=== PATIENT | male | born 1980 | race Caucasian/White ===

== ENCOUNTER 2018-03-05 01:36 | Emergency (ER) | payer OTHER ==
[2018-03-05] MEDS ORDERED: FENTANYL CITR 100 MCG/2 ML ONE (01:55)
[2018-03-05] MEDS ORDERED: ONDANSETRON 4 MG/2 ML VIAL ONE (01:55)
[2018-03-05] MEDS ORDERED: ASPIRIN 81 MG CHEWABLE TABLET ONE (01:58)
[2018-03-05 02:05] LABS: Absolute Lymphocytes (CBC) 6.3 K/uL (0.7-4.9); Absolute Monocytes 0.9 K/uL (0.1-1.3); Absolute Neutrophil 7.9 K/uL (1.8-8.0); Basophils % 0.8 % (0-1.3); Lymphocytes % 41.1 % (15.3-44.8); MPV 6.9 fL (7.6-11.3); Monocytes % 5.8 % (3.3-12.3); RBC Red Blood Cell Count 5.28 M/uL (4.33-5.43)
[2018-03-05] MEDS ORDERED: DIAZEPAM 10 MG/2 ML INJ SYRINGE ONE (02:06)
[2018-03-05] MEDS ORDERED: DIPHENHYDRAMINE 50 MG/ML VIAL ONE (02:14)
[2018-03-05] MEDS ORDERED: IPRATROPIUM BROM 0.5MG/2.5ML ONE (02:14)
[2018-03-05] MEDS ORDERED: METHYLPREDNISOLONE 125 MG INJ ONE (02:14)
[2018-03-05] MEDS ORDERED: ALBUTEROL 2.5 MG/3 ML NEB SOL ONE (02:14)
[2018-03-05] MEDS ORDERED: EPINEPHRINE/PF 1 MG/ML AMP ONE (02:15)
[2018-03-05 02:23] LABS: ALT/SGPT 25 U/L (12-78); AST/SGOT 20 U/L (15-37); Albumin 3.9 g/dL (3.4-5.0); Alkaline Phosphatase 70 U/L (45-117); BUN Blood Urea Nitrogen 13 mg/dL (7-18); Bicarbonate 21 mmol/L (21-32); Bilirubin Direct < 0.1 mg/dL (0-0.2); Bilirubin Total 0.2 mg/dL (0.2-1.0); Glucose Level 82 mg/dL (74-106); Magnesium 2.3 mg/dL (1.8-2.4); Potassium 3.2 mmol/L (3.5-5.1); Protein, Total 7.7 g/dL (6.4-8.2); Sodium Level 145 mmol/L (136-145); Troponin (Emerg Dept Use Only) < 0.02 ng/mL (0.0-0.045)
[2018-03-05 02:30] LABS: NT PRO-BNP < 5 pg/mL (<125)
[2018-03-05] MEDS ORDERED: HYDROMORPHONE HCL 1 MG/ML INJ ONE ×2 (02:33→03:17)
[2018-03-05] MEDS ORDERED: NA CHLORIDE 0.9% 1,000 ML ONE (02:38)
[2018-03-05 02:53] LABS: Arterial Blood Carboxyhemoglob 3.6 % (0-1.5); Blood Gas Oxyhemoglobin 94.5 % (94-97); Blood O2 Saturation 98.6 % (92-98.5)
[2018-03-05 03:23] LABS: Barbiturates NEGATIVE (NEGATIVE); Benzodiazepines NEGATIVE (NEGATIVE); Cocaine NEGATIVE (NEGATIVE); METHAMPHETAM NEGATIVE (NEGATIVE); Methadone NEGATIVE (NEGATIVE); Opiates NEGATIVE (NEGATIVE); Phencyclidine NEGATIVE (NEGATIVE); THC Cannibis NEGATIVE (NEGATIVE)
[2018-03-05 03:25] LABS: Urine Blood NEGATIVE (NEG); Urine Glucose NEGATIVE (NEG); Urine Protein NEGATIVE (NEG); Urine Specific Gravity 1.005 (1.005-1.030); Urine pH 5.5 (5.0-7.0)
[2018-03-05] MEDS ORDERED: HYDROCODONE/APAP 10/325 TAB ONE (04:36)
--- NOTE | 2018-03-05 06:01 | ER ---
Nurse's Notes [facility] Emergency Department Name: Westley Wyatt Jr Age: 37 yrs Sex: Male : 1980 Arrival Date: 03/05/2018 Time: 01:39 Bed 4 Private MD: Diagnosis: Cervical disc disorder with myelopathy Presentation: 03/05 01:51 Presenting complaint: Patient states: he is having severe chest pain since yesterday bb pain is intermittent but worsened today also has left arm numbness. Transition of care: patient was not received from another setting of care. Onset of symptoms was March 04, 2018. Risk Assessment: Do you want to hurt yourself or someone else? Patient reports no desire to harm self or others. Initial Sepsis Screen: Does the patient meet any 2 criteria? No. Patient's initial sepsis screen is negative. Does the patient have a suspected source of infection? No. Patient's initial sepsis screen is negative. Care prior to arrival: None. 01:51 Method Of Arrival: Ambulatory bb 01:51 Acuity: ROBERT 2 bb Historical: - Allergies: 01:53 Demerol; bb - Home Meds: 01:53 Unable to obtain [Active]; bb - PMHx: 03:34 Unable to obtain; ak1 - PSHx: 01:53 Cholecystectomy; Appendectomy; Bowel resection; bb - Immunization history:: Adult Immunizations unknown. - Social history:: Smoking status: Patient uses tobacco products, denies chronic smoking, but will smoke occasionally. - Ebola Screening: : No symptoms or risks identified at this time. Screenin:39 Abuse screen: Denies threats or abuse. Nutritional screening: No deficits noted. jb4 Tuberculosis screening: No symptoms or risk factors identified. Fall Risk IV access (20 points). Gait- Impaired (20 pts.). Total Padron Fall Scale indicates Low Risk Score (25-44 pts). Fall prevention measures have been instituted. Side Rails Up X 2 Placed close to Nursing Station Frequent Obs/Assesments occuring Family Present and informed to notify staff if they need to leave bedside As available Patient and Family Educated on Fall Prevention Program and strategies. Assessment: 01:39 General: Appears distressed, Behavior is cooperative, anxious, Pt presented to the ER jb4 with chest pain and a rash extended from the scalp mid way down the chest. Provider notified of pt being in distress and is at the bedside.. Pain: Complains of pain in chest Pain radiates to left arm Pain currently is 10 out of 10 on a pain scale. Quality of pain is described as Pain began 1 day ago. Is intermittent. Neuro: Level of Consciousness is awake, alert, obeys commands, Oriented to person, place, time, situation. Cardiovascular: Heart tones S1 S2 present Patient's skin is warm and dry. Rhythm is sinus tachycardia Chest pain is described as "worst pain of my life", quality is clutching, sharp, stabbing, radiates to left arm(s) began 30 minutes prior to arrival episodes are continuous. Respiratory: Reports labored breathing Airway is patent Respiratory effort is even, labored, Respiratory pattern is symmetrical, hyperventilation Breath sounds are clear bilaterally. GI: Reports lower abdominal pain. : No signs and/or symptoms were reported regarding the genitourinary system. EENT: No signs and/or symptoms were reported regarding the EENT system. 01:39 Derm: Skin is intact, Skin is pink, warm \\T\\ dry. Cyanosis noted to alfie fingers and jb4 hands. Musculoskeletal: PT reports numbness and tingling in the left arm, difficulty moving the left arm and both legs. 01:45 Reassessment: Pt went unresponsive, woken with sternal rubs. Is hyperventilating and jb4 clutching his chest repeating "It hurts it hurts, please make it stop." Physician is at the bedside. See [facility] for orders. 01:47 Reassessment: Pt went unresponsive a second time, woken with sternal rubs. Pt is still jb4 anxious, has requested his girlfriend be allowed in the room for comfort. Girlfriend is now at the bedside. 01:50 Reassessment: Pt went unresponsive two more time before being moved to a trauma room, jb4 and one time in transit. Pt was woken up with sternal rubs each time. Requested girl friend stay at the bedside for comfort. Is still very anxious and hyperventilating. see [facility] for further orders. 02:56 Reassessment: pt talking and wanting to us the urinal, pt went unresponsive. pt ak1 breathing, eyes open, pt not alert. pt had "several episodes" similar while under care of previous nurse. General:. 03:34 Reassessment: pt tolerated CT well. pt able to move all extremities. pt unable to "feel ak1 sensation " in left upper extremity and left leg. pt with weaker patient care provider to left hand. pt c/o increased pain to his left chest when lift and moving left arm. 04:32 Reassessment: pt tolerated head and c-spine CT well. pt c/o increased chest pain 8/[address] pt continues to c/o "needle" sensation up and down his left arm and left leg. 05:26 Reassessment: Patient appears in no apparent distress at this time. Patient and/or ak1 family updated on plan of care and expected duration. Pain level reassessed. Patient is alert, oriented x 3, equal unlabored respirations, skin warm/dry/pink. pain to left chest has decreased Patient states symptoms have not improved. 06:08 Reassessment: Patient appears in no apparent distress at this time. pt requesting to go ak1 home. Patient states feeling better. Patient states symptoms have improved. Vital Signs: 01:53 BP 155 / 88; Pulse 123; Resp 20 S; Temp 98(O); Pulse Ox 94% on R/A; Weight 90.72 kg bb (R); Height 5 ft. 7 in. (170.18 cm) (R); Pain 10/10; 04:10 BP 129 / 86; Pulse 112; Resp 17; Pulse Ox 98% ; ar5 04:37 BP 117 / 80; Pulse 110; Resp 21; Pulse Ox 98% on R/A; ak1 05:27 BP 122 / 80; Pulse 104; Resp 18; Temp 98.2; Pulse Ox 98% on R/A; ak1 06:07 BP 122 / 75; Pulse 101; Resp 21; Temp 98.3; Pulse Ox 99% on 2 lpm NC; Pain 3/10; ak1 01:53 Body Mass Index 31.32 (90.72 kg, 170.18 cm) bb ED Course: 01:39 Patient arrived in ED. bb 01:39 Patient maintains SpO2 saturation greater than 95% on room air. jb4 01:39 Patient has correct armband on for positive identification. Placed in gown. Bed in low jb4 position. Call light in reach. Side rails up X2. phototypesetting equipment monitor on. Pulse ox on. NIBP on. 01:45 [facility] jr[facility] 01:45 Iban Will MD is Attending Physician. jr8 01:45 Inserted saline lock: 18 gauge in right antecubital area, using aseptic technique. tl2 Blood collected. 01:49 X-ray completed. Portable x-ray completed in exam room. Patient tolerated procedure kw well. 01:50 XRAY Chest (1 view) In Process Unspecified. EDMS 01:52 Triage completed. bb 01:53 Arm band placed on Patient placed in an exam room, on a stretcher, on secured entrance monitor, bb on pulse oximetry. EKG completed in triage. Results shown to MD. 02:26 Inserted saline lock: 20 gauge in left antecubital area, using aseptic technique. bb 02:31 Leoncio Lei, ANTHONY is Primary Nurse. jb4 03:27 CT Aorta for Dissection In Process Unspecified. EDMS 04:27 CT Head C Spine In Process Unspecified. EDMS 04:27 CT completed. Patient tolerated procedure well. Patient moved back from CT. kw1 05:27 No provider procedures requiring assistance completed. ak1 06:00 Tyshawn Crabtree MD is Referral Physician. gs 06:18 IV discontinued, intact, bleeding controlled, No redness/swelling at site. Pressure ak1 dressing applied. Administered Medications: 01:45 Drug: fentaNYL (PF) 50 mcg Route: IVP; Site: right antecubital; jb4 02:30 Follow up: Response: No adverse reaction; Pain is decreased jb4 01:45 Drug: Zofran 4 mg Route: IVP; Site: right antecubital; jb4 02:30 Follow up: Response: No adverse reaction; Nausea is decreased jb4 01:50 Drug: Aspirin Chewable Tablet 324 mg Route: PO; jb4 02:30 Follow up: Response: No adverse reaction jb4 01:55 Drug: Valium 5 mg Route: IVP; Site: right antecubital; jb4 02:30 Follow up: Response: No adverse reaction; Pain is decreased jb4 02:00 Drug: Benadryl 50 mg Route: IVP; Site: right antecubital; jb4 04:38 Follow up: Response: No adverse reaction; Marked relief of symptoms jb4 02:00 Drug: SOLU-Medrol 125 mg Route: IVP; Site: right antecubital; jb4 04:38 Follow up: Response: No adverse reaction; Marked relief of symptoms jb4 02:12 Drug: Albuterol - atroVENT (3:1) (2.5 mg - 0.5 mg) 3 ml Route: Nebulizer; jb4 04:37 Follow up: Response: No adverse reaction ak1 02:16 Drug: fentaNYL (PF) 50 mcg Route: IVP; Site: right antecubital; jb4 02:30 Follow up: Response: No adverse reaction; Pain is decreased jb4 02:20 Drug: Valium 5 mg Route: IVP; Site: right antecubital; jb4 02:30 Follow up: Response: No adverse reaction; Pain is decreased jb4 02:26 Drug: Dilaudid 1 mg Route: IVP; Site: left antecubital; bb 02:30 Follow up: Response: No adverse reaction; Pain is decreased jb4 02:29 Drug: NS 0.9% 1000 ml Route: IV; Rate: 1 bolus; Site: right antecubital; jb4 04:37 Follow up: IV Status: Completed infusion; IV Intake: 1000ml ak1 03:32 Drug: Dilaudid 1 mg Route: IVP; Site: left antecubital; ak1 04:37 Follow up: Response: No adverse reaction; Pain is unchanged, physician notified ak1 04:20 Drug: [place] 10 mg-325 mg 1 tabs Route: PO; jb4 06:08 Follow up: Response: Pain is decreased ak1 Intake: 04:37 IV: 1000ml; Total: 1000ml. ak1 Outcome: 06:00 Discharge ordered by 06:08 Discharged to home ambulatory, with family. ak1 06:08 Condition: improved 06:08 Discharge instructions given to patient, family, Instructed on discharge instructions, follow up and referral plans. Demonstrated understanding of instructions, follow-up care. 06:18 Instructed on no drinking with medication, no driving heavy equipment, medication ak1 usage, Prescriptions given X 2. 06:20 Patient left the ED. ak1 Signatures: Dispatcher [employer] EDMS Farzaneh Feliciano RN RN Sommer Santos Josh, PA PA jr8 Krenek, Amber, RN RN ak1 Alyssa Lloyd RN RN tl2 Leoncio Lei RN RN jb4 Iban Will MD MD gs Wilhelm, Kimberly kw1 Sofya Giles ar5 Corrections: (The following items were deleted from the chart) 02:07 01:51 Acuity: ROBERT 3 bb bb 03:10 01:39 General: Appears distressed, Behavior is cooperative, anxious, Pt presented to 4 the ER with chest pain and a rash extended from the scalp mid way down the chest.. 4 04:32 01:39 Derm: Skin is intact, Skin is pink, warm \\T\\ dry. Cyanosis noted to alfie fingers. 4jb4 04:32 03:34 Reassessment: pt tolerated CT well. pt able to move all extremities. pt unable to ak1 "feel sensation " in left upper extremity and left leg. ak1
--- NOTE | 2018-03-05 06:01 | EDPHYS ---
Physician Documentation [facility] Name: Westley Wyatt Jr Age: 37 yrs Sex: Male : 1980 Arrival Date: 03/05/2018 Time: 01:39 Bed 4 Private MD: ED Physician Iban Will HPI: 03/05 02:43 This 37 yrs old Male presents to ER via Ambulatory with complaints of Chest jr8 Pain. 02:43 The patient or guardian reports chest pain that is located primarily in the anterior jr8 chest wall, left. The pain does not radiate. Associated signs and symptoms: Pertinent positives: shortness of breath. The chest pain is described as squeezing, stabbing. Duration: The patient or guardian reports multiple episodes, that are intermittent, that wax and wane. Modifying factors: The symptoms are alleviated by nothing. the symptoms are aggravated by nothing. Severity of pain: At its worst the pain was severe in the emergency department the pain is unchanged. The patient has not experienced similar symptoms in the past. The patient has not recently seen a physician. Patient stated that he had a bout of chest pain last night. Had gone away and had been fine today until tonight. Stated that he started to have the pain again. Girlfriend stated that she noticed red splotching rash to chest and left shoulder that now has spread. Patient denies itching, tongue swelling, or difficulty swallowing. Patient smells of ETOH. Stated that he has alcohol earlier this evening. Denies drug use. Denies ever having this before. Patient in moderate distress upon arrival . Historical: - Allergies: 01:53 Demerol; bb - Home Meds: 01:53 Unable to obtain [Active]; bb - PMHx: 03:34 Unable to obtain; ak1 - PSHx: 01:53 Cholecystectomy; Appendectomy; Bowel resection; bb - Immunization history:: Adult Immunizations unknown. - Social history:: Smoking status: Patient uses tobacco products, denies chronic smoking, but will smoke occasionally. - Ebola Screening: : No symptoms or risks identified at this time. ROS: 02:43 Eyes: Negative for injury, pain, redness, and discharge, ENT: Negative for injury, jr8 pain, and discharge, Neck: Negative for injury, pain, and swelling, Abdomen/GI: Negative for abdominal pain, nausea, vomiting, diarrhea, and constipation, Back: Negative for injury and pain, MS/Extremity: Negative for injury and deformity, Neuro: Negative for headache, weakness, numbness, tingling, and seizure. 02:43 Cardiovascular: Positive for chest pain, Negative for edema, orthopnea, palpitations, paroxysmal nocturnal dyspnea. 02:43 Respiratory: Positive for shortness of breath, Negative for cough, dyspnea on exertion, sputum production, wheezing. 02:43 Skin: Positive for rash, of the chest. Exam: 02:43 Head/Face: Normocephalic, atraumatic. Eyes: Pupils equal round and reactive to light, jr8 extra-ocular motions intact. Lids and lashes normal. Conjunctiva and sclera are non-icteric and not injected. Cornea within normal limits. Periorbital areas with no swelling, redness, or edema. ENT: Nares patent. No nasal discharge, no septal abnormalities noted. Tympanic membranes are normal and external auditory canals are clear. Oropharynx with no redness, swelling, or masses, exudates, or evidence of obstruction, uvula midline. Mucous membranes moist. Neck: Trachea midline, no thyromegaly or masses palpated, and no cervical lymphadenopathy. Supple, full range of motion without nuchal rigidity, or vertebral point tenderness. No Meningismus. Chest/axilla: Normal chest wall appearance and motion. Nontender with no deformity. No lesions are appreciated. Cardiovascular: Sinus Tachycardia with a normal S1 and S2. No gallops, murmurs, or rubs. Normal PMI, no JVD. No pulse deficits. Abdomen/GI: Soft, non-tender, with normal bowel sounds. No distension or tympany. No guarding or rebound. No evidence of tenderness throughout. Back: No spinal tenderness. No costovertebral tenderness. Full range of motion. MS/ Extremity: Pulses equal, no cyanosis. Neurovascular intact. Full, normal range of motion. Neuro: Awake and alert, GCS 15, oriented to person, place, time, and situation. Cranial nerves II-XII grossly intact. Motor strength 5/5 in all extremities. Sensory grossly intact. Cerebellar exam normal. Normal gait. 02:43 Constitutional: The patient appears alert, awake, in obvious distress, moderately distressed, in obvious pain, smells of alcohol, ETOH. 02:43 Respiratory: mild respiratory distress is noted, Respirations: tachypnea, Breath sounds: are clear throughout, no bronchial sounds, no decreased breath sounds, no rales, rhonchi, no stridor, no wheezing. 02:43 Skin: Patient has red patchy rash to chest and left shoulder. Vital Signs: 01:53 BP 155 / 88; Pulse 123; Resp 20 S; Temp 98(O); Pulse Ox 94% on R/A; Weight 90.72 kg bb (R); Height 5 ft. 7 in. (170.18 cm) (R); Pain 10/10; 04:10 BP 129 / 86; Pulse 112; Resp 17; Pulse Ox 98% ; ar5 04:37 BP 117 / 80; Pulse 110; Resp 21; Pulse Ox 98% on R/A; ak1 05:27 BP 122 / 80; Pulse 104; Resp 18; Temp 98.2; Pulse Ox 98% on R/A; ak1 06:07 BP 122 / 75; Pulse 101; Resp 21; Temp 98.3; Pulse Ox 99% on 2 lpm NC; Pain 3/10; ak1 01:53 Body Mass Index 31.32 (90.72 kg, 170.18 cm) bb MDM: 01:45 Patient medically screened. jr8 02:43 ED course: Patients rash seemed to be spreading to neck and shoulders. Given jr8 Solu-Medrol and Benadryl. Continues to have severe chest pain. Describes it as cramping sensation. Patient has had two syncopal episodes with hypoxia that would last for about 15-30 seconds. Has been treated for allergic reaction. Patient doing better after Valium and Dilaudid.. 04:01 ED course: Patients rash has now subsided. Patient feeling better. Now having sensory jr8 deficit to left arm along with weakness and tingling . 05:56 Differential diagnosis: pancreatitis, peptic ulcer disease, thoracic aortic disection, gs cervical radiculopathy. Data reviewed: vital signs, nurses notes. 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 pulses good. pt states doesn't want transfer neuro work up or mri. will treat as myelopathy and cerv radiculopathy. 03/05 01:45 Order name: Basic Metabolic Panel; Complete Time: 02:34 jr8 03/05 01:45 Order name: CBC with Diff; Complete Time: 02:17 03/05 01:45 Order name: LFT's; Complete Time: 02:34 03/05 01:45 Order name: Magnesium; Complete Time: 02:34 03/05 01:45 Order name: NT PRO-BNP; Complete Time: 02:34 03/05 01:45 Order name: PT-INR; Complete Time: 02:17 03/05 01:39 Order name: XRAY Chest (1 view); Complete Time: 15:17 03/05 01:45 Order name: Troponin (emerg Dept Use Only); Complete Time: 02:03/05 01:45 Order name: ETOH Level; Complete Time: 02:03/05 01:45 Order name: UDS; Complete Time: 03:35 03/05 02:40 Order name: ABG; Complete Time: 03:17 03/05 02:53 Order name: CT Aorta for Dissection; Complete Time: 15:03/05 03:07 Order name: Urine Dipstick--Ancillary (enter results) ag4 03/05 03:37 Order name: CK; Complete Time: 05:56 03/05 01:45 Order name: EKG; Complete Time: :03/05 01:45 Order name: Cardiac monitoring; Complete Time: :03/05 04:08 Order name: CT Head C Spine; Complete Time: 15:03/05 01:45 Order name: EKG - Nurse/Tech; Complete Time: :03/05 01:45 Order name: IV Saline Lock; Complete Time: :03/05 01:45 Order name: Labs collected and sent; Complete Time: :03/05 01:45 Order name: O2 Per Protocol; Complete Time: :03/05 01:45 Order name: O2 Sat Monitoring; Complete Time: :47 03/05 02:35 Order name: Straight Cath - Urine; Complete Time: 03:36 Administered Medications: 01:45 Drug: fentaNYL (PF) 50 mcg Route: IVP; Site: right antecubital; 4 02:30 Follow up: Response: No adverse reaction; Pain is decreased jb4 01:45 Drug: Zofran 4 mg Route: IVP; Site: right antecubital; jb4 02:30 Follow up: Response: No adverse reaction; Nausea is decreased jb4 01:50 Drug: Aspirin Chewable Tablet 324 mg Route: PO; jb4 02:30 Follow up: Response: No adverse reaction jb4 01:55 Drug: Valium 5 mg Route: IVP; Site: right antecubital; jb4 02:30 Follow up: Response: No adverse reaction; Pain is decreased jb4 02:00 Drug: Benadryl 50 mg Route: IVP; Site: right antecubital; jb4 04:38 Follow up: Response: No adverse reaction; Marked relief of symptoms jb4 02:00 Drug: SOLU-Medrol 125 mg Route: IVP; Site: right antecubital; jb4 04:38 Follow up: Response: No adverse reaction; Marked relief of symptoms jb4 02:12 Drug: Albuterol - atroVENT (3:1) (2.5 mg - 0.5 mg) 3 ml Route: Nebulizer; jb4 04:37 Follow up: Response: No adverse reaction ak1 02:16 Drug: fentaNYL (PF) 50 mcg Route: IVP; Site: right antecubital; jb4 02:30 Follow up: Response: No adverse reaction; Pain is decreased jb4 02:20 Drug: Valium 5 mg Route: IVP; Site: right antecubital; jb4 02:30 Follow up: Response: No adverse reaction; Pain is decreased jb4 02:26 Drug: Dilaudid 1 mg Route: IVP; Site: left antecubital; bb 02:30 Follow up: Response: No adverse reaction; Pain is decreased jb4 02:29 Drug: NS 0.9% 1000 ml Route: IV; Rate: 1 bolus; Site: right antecubital; jb4 04:37 Follow up: IV Status: Completed infusion; IV Intake: 1000ml ak1 03:32 Drug: Dilaudid 1 mg Route: IVP; Site: left antecubital; ak1 04:37 Follow up: Response: No adverse reaction; Pain is unchanged, physician notified ak1 04:20 Drug: [place] 10 mg-325 mg 1 tabs Route: PO; jb4 06:08 Follow up: Response: Pain is decreased ak1 Disposition: 05:56 Co-signature as Attending Physician, José BAIRD. Disposition: 03/05/18 06:00 Discharged to Home. Impression: Cervical disc disorder with myelopathy. - Condition is Stable. - Discharge Instructions: Cervical Radiculopathy, [id number]. - Prescriptions for Prednisone 20 mg Oral Tablet - take 1 tablet by ORAL route once daily for 5 days; 5 tablet. Tylenol- Codeine #4 300-60 mg Oral Tablet - take 1 tablet by ORAL route every 6 hours As needed; 12 tablet. - Family Work Release, Thank You Letter, Antibiotic Education, Prescription Opioid Use, Medication Reconciliation Form, SBAR form form. - Follow up: Tyshawn Crabtree MD; When: 2 - 3 days; Reason: Re-evaluation by your physician. Signatures: Dispatcher [employer] EDMS Farzaneh Feliciano RN RN bb Roszak, Josh, PA PA jr8 Carisa Monroy RN RN ak1 Alyssa Lloyd RN RN tl2 Leoncio Lei RN RN jb4 Iban Will MD MD gs Corrections: (The following items were deleted from the chart) 02:46 02:43 Patient stated that he had a bout of chest pain last night. Had gone away and had jr8 been fine today until tonight. Stated that he started to have the pain again. Girlfriend stated that she noticed red splotching rash to chest and left shoulder that now has spread. Patient smells of ETOH. Stated that he has alcohol earlier this evening. Denies drug use. Denies ever having this before. Patient in moderate distress upon arrival . jr8 03:17 02:43 ED course: Patients rash seemed to be spreading to neck and shoulders. Given jr8 Solu-Medrol and Benadryl. Continues to have severe chest pain. Describes it as cramping sensation. Patient has had two syncopal episodes with hypoxia. Has been treated for allergic reaction. Patient doing better after Valium and Dilaudid . jr8 06:18 06:00 03/05/2018 06:00 Discharged to Home. Impression: Cervical disc disorder with ak1 myelopathy. Condition is Stable. Forms are Medication Reconciliation Form, SBAR form, Family Work Release, Thank You Letter, Antibiotic Education, Prescription Opioid Use. Follow up: Tyshawn Crabtree; When: 2 - 3 days; Reason: Re-evaluation by your physician. 06:20 06:18 03/05/2018 06:00 Discharged to Home. Impression: Cervical disc disorder with ak1 myelopathy. Condition is Stable. Discharge Instructions: Cervical Radiculopathy, [id number]. Prescriptions for Prednisone 20 mg Oral Tablet - take 1 tablet by ORAL route once daily for 5 days; 5 tablet, Tylenol-Codeine #4 300-60 mg Oral Tablet - take 1 tablet by ORAL route every 6 hours As needed; 12 tablet. and Forms are Medication Reconciliation Form, SBAR form, Family Work Release, Thank You Letter, Antibiotic Education, Prescription Opioid Use. Follow up: Tyshawn Crabtree; When: 2 - 3 days; Reason: Re-evaluation by your physician. ak1
[2018-03-05 06:37] VITALS: BP 122/75; TEMP 98.3; O2SAT 99
--- NOTE | 2018-03-05 10:14 | RAD REPORT ---
EXAM DESCRIPTION: RAD - Chest Single View - 03/05/2018 1:49 am CLINICAL HISTORY: PAIN Chest pain. COMPARISON: No comparisons FINDINGS: Portable technique limits examination quality. The lungs are grossly clear. The heart is normal in size. No displaced fractures. IMPRESSION: No acute intrathoracic process suspected.
--- NOTE | 2018-03-05 10:25 | RAD REPORT ---
EXAM DESCRIPTION: CT - Angio Aorta For Dissection - 03/05/2018 5:27 am CLINICAL HISTORY: Chest pain radiating to the back. Chest pain;Dyspnea COMPARISON: No comparisons TECHNIQUE: CT angiography of the aorta was performed with MIPs. All CT scans are performed using dose optimization technique as appropriate and may include automated exposure control or mA/KV adjustment according to patient size. FINDINGS: A left aortic arch is present with normal branching pattern of the great vessels.No acute aortic finding is seen such as aneurysm, penetrating ulcer or dissection. The celiac axis, SMA, ROSSY and renal arteries are widely patent. No evidence of pulmonary embolism. Linear subsegmental atelectasis is present in both lung bases. The lungs are otherwise clear. Diffuse fatty liver. No focal liver lesion or intrahepatic biliary dilatation. Cholecystectomy clips. The spleen, pancreas, adrenal glands and kidneys are within normal limits for arterial phase imaging. No bowel obstruction, free fluid or abscess.Appendectomy clips.No pathologic enlarged lymphadenopathy identified. Mild to moderate lower lumbar degenerative changes. IMPRESSION: No acute aortic finding is demonstrated.
--- NOTE | 2018-03-05 10:33 | RAD REPORT ---
EXAM DESCRIPTION: CT - [facility] - 03/05/2018 5:31 am CLINICAL HISTORY: Trauma, head and neck injury. PAIN COMPARISON: CT HEAD CSPINE MPR WO CONTRAST dated 07/24/2011 TECHNIQUE: Axial 5 mm thick images of the head were obtained. Axial 2 mm thick images of the cervical spine were obtained with sagittal and coronal reconstruction images generated and reviewed. All CT scans are performed using dose optimization technique as appropriate and may include automated exposure control or mA/KV adjustment according to patient size. FINDINGS: CT HEAD WITHOUT CONTRAST: No acute hemorrhage, hydrocephalus or extra-axial collection is identified.No areas of brain edema or midline shift. Moderate mucoperiosteal thickening of the paranasal sinuses.The calvarium is intact. CT CERVICAL SPINE WITHOUT CONTRAST: No fracture or subluxation.No prevertebral soft tissues swelling is identified. IMPRESSION: No acute intracranial or cervical spine findings. Moderate sinusitis.
--- NOTE | 2018-03-05 11:58 | EKG ---
Test Date: 2018-03-05 Test Time: 01:37:46 Full Decator Operator: MEASUREMENT RESULTS: Intervals: Rate: 129 ID: [id number] QRSD: 84 QT: 302 QTc: 442 [place]: P: 67 ID: [id number] QRS: 81 T: 17 INTERPRETIVE STATEMENTS: Sinus tachycardia Otherwise normal ECG No previous ECG available for comparison Electronically Signed On 03-05-18 11:57:45 [employer] RU[employer] MIXER by Bob Lee
== END 2018-03-05 06:20 | disposition home or self-care (01) ==
LOC: ER 01:36
DX: M50.00 Cervical disc disorder with myelopathy, unspecified cervical region (principal); Z72.0 Tobacco use; Z88.5 Allergy status to narcotic agent
CPT/HCPCS: 36415; 70450; 71045; 71275; 72125; 74175; 80048; 80076; 80307; 80320; 81003; 82550; 82805; 83735; 83880; 84484; 85025; 85610; 93005; 94640; 99285; J0171; J1170; J2405; J2930; J3010; J3360; J7030; Q9967